=== PATIENT | male | born 1990 | race Caucasian/White ===

== ENCOUNTER 2024-02-16 00:37 | Emergency (ER) | payer SELFPAY ==
[~2024-02-16] VITALS: Ht 182.9 cm; Wt 73.0 kg
[2024-02-16 00:48] VITALS: TEMP 97.5; O2SAT 97
[2024-02-16 02:11] LABS: CARBON DIOXIDE 22 mEq/L (21-32); CHLORIDE 106 mEq/L (98-107); SODIUM 135 mEq/L (136-145)
[2024-02-16 02:12] LABS: CALCIUM 9.2 mg/dL (8.7-10.4)
[2024-02-16 02:17] LABS: CREATININE 0.8 mg/dL (0.6-1.3); GLUCOSE 96 mg/dL (70-105); UREA NITROGEN BLOOD 6 mg/dL (9-23)
[2024-02-16 02:19] LABS: ALANINE AMINOTRANSFERASE 86 IU/L (10-49); ASPARTATE AMINOTRANSFERASE 117 IU/L (<34); BILIRUBIN TOTAL 0.6 mg/dL (0.1-1.0); PROTEIN TOTAL 8.1 g/dL (6.0-8.3)
[2024-02-16 03:47] LABS: BASOPHILS % 0.8 % (0.0-2.0); EOSINOPHILS % 1.2 % (0.0-5.0); HEMATOCRIT. 44.2 % (42.0-52.0); HEMOGLOBIN. 15.1 g/dL (14.0-18.0); LYMPHOCYTES % 22.6 % (20.0-50.0); MEAN CORPUSCULAR HGB CONC 34.1 g/dL (31.0-37.0); MEAN PLATELET VOLUME 9.6 fl (7.4-10.4); MONOCYTES % 7.5 % (2.0-8.0); NEUTROPHILS % 67.9 % (40.0-76.0); PLATELET 206 x1000/uL (130-400); RED BLOOD CELL COUNT 4.71 mill/uL (4.7-6.1); RED CELL DISTRIBUTION WIDTH 14.2 % (11.6-14.6); WHITE BLOOD COUNT 8.1 x1000/uL (4.5-11.0)
[2024-02-16 05:16] LABS: CHLORIDE 103 mEq/L (98-107); POTASSIUM 4.1 mEq/L (3.5-5.1); SODIUM 136 mEq/L (136-145)
[2024-02-16 05:17] LABS: CARBON DIOXIDE 23 mEq/L (21-32)
[2024-02-16 05:18] LABS: CALCIUM 9.1 mg/dL (8.7-10.4)
[2024-02-16 05:22] LABS: CREATININE 0.9 mg/dL (0.6-1.3); GLUCOSE 100 mg/dL (70-105); UREA NITROGEN BLOOD 9 mg/dL (9-23)
[2024-02-16 05:24] LABS: ALANINE AMINOTRANSFERASE 85 IU/L (10-49); ALBUMIN 4.9 g/dL (3.2-4.8); ASPARTATE AMINOTRANSFERASE 108 IU/L (<34)
[2024-02-16 05:25] LABS: BILIRUBIN TOTAL 0.6 mg/dL (0.1-1.0); PROTEIN TOTAL 7.4 g/dL (6.0-8.3)
[2024-02-16 05:31] LABS: ETHANOL BLOOD < 10 mg/dL (<10)
[2024-02-16] MEDS ORDERED: LEVETIRACETAM 500MG/5ML CUP PO ONE (06:00)
[2024-02-16] MEDS: ONDANSETRON HCL 4MG/2ML INJ IV STA (06:20)
[2024-02-16] MEDS: SODIUM CHLORIDE 0.9% 1,000 ML IV ONE (06:21)
[2024-02-16] MEDS: LEVETIRACETAM 1000MG PREMIX 100 ML IV ONE (06:21)
[2024-02-16] MEDS: LEVETIRACETAM 500MG TABLET PO NR (06:26)
[2024-02-16 06:30] VITALS: BP 153/85; PULSE 99; RESP 14
== END 2024-02-16 06:32 | disposition home or self-care (01) ==
LOC: ER 00:52
DX: S00.81XA Abrasion of other part of head, initial encounter (principal); R56.9 Unspecified convulsions; F14.90 Cocaine use, unspecified, uncomplicated; F19.90 Other psychoactive substance use, unspecified, uncomplicated; X58.XXXA Exposure to other specified factors, initial encounter; Y93.89 Activity, other specified; Y92.89 Other specified places as the place of occurrence of the external cause; Y99.8 Other external cause status
CPT/HCPCS: 80053; 80320; 83605; 85025; 36415; 71045; 70450; 93005; 99285; J7030; Z7610; G0480